=== PATIENT | female | born 1950 | race Two or more races ===

== ENCOUNTER 2024-01-08 13:21 | Emergency (ER) | payer MEDICAID ==
[~2024-01-08] VITALS: Ht 162.6 cm; Wt 65.8 kg
[2024-01-08 13:30] VITALS: TEMP 98.3
[2024-01-08] MEDS ORDERED: MORPHINE SULFATE INJ 4 MG/ML DISP.SYRIN ONE ×3 (14:01→20:15)
[2024-01-08] MEDS ORDERED: ONDANSETRON HCL/PF 4 MG/2 ML VIAL ONE (14:01)
[2024-01-08] MEDS: MORPHINE SULFATE INJ 2 MG/ML DISP.SYRIN IV ONE ×3 (14:04→20:16)
[2024-01-08] MEDS: IV NS 0.9% 500 ML BAG IV ONE (14:04)
[2024-01-08] MEDS: ONDANSETRON HCL/PF 4 MG/2 ML VIAL IVP ONE (14:04)
[2024-01-08 15:01] LABS: BASOPHILS % (AUTO) 0.5 % (0.0-2.0); EOSINOPHILS % (AUTO) 0.4 % (0.0-6.0); HEMATOCRIT 41 % (33-45); HEMOGLOBIN 13.3 g/dL (11.5-14.8); LYMPHOCYTES # (AUTO) 2.2 K/uL (0.8-4.8); LYMPHOCYTES % (AUTO) 22.6 % (20.0-44.0); MEAN CORPUSCULAR HEMOGLOBIN 28 PG (26.0-33.0); MEAN CORPUSCULAR HGB CONC 33 g/dl (31.0-36.0); MEAN CORPUSCULAR VOLUME 85 fL (82-100); MONOCYTES # (AUTO) 0.5 K/uL (0.1-1.30); MONOCYTES % (AUTO) 5.5 % (2.0-12.0); NEUTROPHILS # (AUTO) 6.9 K/uL (1.8-8.9); PLATELET COUNT (AUTO) 206 K/uL (150-450); RED BLOOD CELL COUNT(AUTO) 4.78 MIL/uL (4.0-5.2); RED CELL DISTRIBUTION WIDTH 14.9 % (11.5-15.0); WHITE BLOOD COUNT (AUTO) 9.7 K/uL (4.3-11.0)
[2024-01-08 15:23] LABS: INR 1.02 (0.91-1.10); PROTHROMBIN TIME 10.8 SECS (9.2-11.1)
[2024-01-08 15:53] LABS: CALCIUM, SERUM 8.7 mg/dL (8.5-10.1); CARBON DIOXIDE 27 mmol/L (21-32); CHLORIDE 104 mmol/L (98-107); CREATININE 0.6 mg/dL (0.6-1.3); GLUCOSE 106 mg/dL (74-106); POTASSIUM 3.7 mmol/L (3.5-5.1); SODIUM SERUM 139 mmol/L (136-145); UREA NITROGEN, BLOOD 9 mg/dL (7-18)
[2024-01-08] MEDS: IV NS 0.9% 1,000 ML BAG IV ONE (18:33)
[2024-01-08 19:39] VITALS: BP 123/76; O2SAT 94
== END 2024-01-08 23:08 | disposition short-term general hospital (02) ==
LOC: ER 13:47
DX: S72.002A Fracture of unspecified part of neck of left femur, initial encounter for closed fracture (principal); S50.312A Abrasion of left elbow, initial encounter; R07.9 Chest pain, unspecified; Z20.822 Contact with and (suspected) exposure to COVID-19; W10.8XXA Fall (on) (from) other stairs and steps, initial encounter; Y93.89 Activity, other specified; Y92.89 Other specified places as the place of occurrence of the external cause; Y99.8 Other external cause status
CPT/HCPCS: 99285; 96374; 96361; 71045; 96375; 87426; 93005; 96376; 73080; 73503; 85025; 80048; 36415; 85730; 72170; J2270 ×3; J2405; J7030; J7040; 73502